=== PATIENT | male | born 1950 | race Caucasian/White ===

== ENCOUNTER → 2016-12-15 | Outpatient (CLI) | payer MEDICARE, OTHER ==
[~2016-12-15] MED LIST: B COMPLEX & B121 TAB PO; CALCIUM CARB W/1 TAB PO; CARDI-OMEGA1000 MG PO; CEPHALEXIN500 M2 PO; CHILDREN'S ASPI81 M1 PO; CO Q-1050 MG PO; DUO-KAPS1 CAP PO; FLOMAX 0.40.4 MG/CAP PO; GLUCOPHAGE PO; GUAIFENESIN AC120 ML PO; LIPITOR 80MG80 MG PO; MYFORTIC360 MG PO; NATURE'S BLEND400 I1 PO; PERCOCET 325 MG1 TA2 PO; PROGRAF 0.5MG0.5 MG PO; PROGRAF1 MG PO; RESTORIL30 MG PO; TANZEUM50 MG SC; VITAMIN B12 PO; ZYRTEC10 MG PO
== END ==
LOC: LAB 08:16
DX: Z94.1 Heart transplant status (principal); D89.9 Disorder involving the immune mechanism, unspecified

== ENCOUNTER → 2017-01-03 | Day surgery (SDC) | payer MEDICARE, OTHER | LOC: MSO 07:04 | DX: Z12.9 Encounter for screening for malignant neoplasm, site unspecified (principal); Z94.1 Heart transplant status; Z87.891 Personal history of nicotine dependence | CPT/HCPCS: 00810; G0121; J7030 ==

== ENCOUNTER → 2017-03-15 | Outpatient (CLI) | payer MEDICARE, OTHER ==
[2016-09-06 03:33] VITALS: BP 147/84
== END ==
LOC: LAB 07:20
DX: Z94.1 Heart transplant status (principal); E78.5 Hyperlipidemia, unspecified; D89.9 Disorder involving the immune mechanism, unspecified

== ENCOUNTER → 2017-03-31 | Outpatient (CLI) | payer MEDICARE, OTHER ==
[2016-09-06 03:33] VITALS: BP 147/84
== END ==
LOC: LAB 09:49
DX: Z94.1 Heart transplant status (principal)

== ENCOUNTER → 2017-04-18 | Outpatient (CLI) | payer MEDICARE, OTHER ==
[2016-09-06 03:33] VITALS: BP 147/84
== END ==
LOC: LAB 08:45
DX: Z94.1 Heart transplant status (principal)

== ENCOUNTER → 2018-03-06 | Outpatient (CLI) | payer MEDICARE, OTHER ==
[2016-09-06 03:33] VITALS: BP 147/84
[2018-03-06 07:24] LABS: EOS # 0.1 (0.04-0.40); EOS % 3.2 % (0.0-4.0); HEMATOCRIT 46.9 % (42.0-52.0); HEMOGLOBIN 15.4 g/dL (13.5-18.0); LYMPH# 1.2 (1.50-4.00); MEAN CELL VOLUME 90 fl (78-100); MEAN CORPUSCULAR HEMOGLOBIN 30 pg (27-31); MEAN CORPUSCULAR HGB CONC 33 g/dL (33-37); MEAN PLATELET VOLUME 10.1 fl (7.4-10.4); MONO # 0.3 (0.20-0.80); NEU # 2.7 (1.40-6.50); PLATELET COUNT 139 K/mm3 (130-400); RED BLOOD COUNT 5.19 M/mm3 (4.20-5.60); WHITE BLOOD COUNT 4.4 K/mm3 (4.8-10.8)
[2018-03-06 07:37] LABS: BUN/CREATININE RATIO 20.1 (6.0-26.0); POTASSIUM 4.4 mmol/L (3.6-5.0)
== END ==
LOC: LAB 07:11
PROVIDERS: Internal Medicine Cardiovascular Disease
DX: Z48.21 Encounter for aftercare following heart transplant (principal); D89.9 Disorder involving the immune mechanism, unspecified; E78.2 Mixed hyperlipidemia

== ENCOUNTER → 2018-09-06 | Outpatient (CLI) | payer MEDICARE, OTHER ==
[2016-09-06 03:33] VITALS: BP 147/84
[2018-09-06 09:04] LABS: EOS # 0.2 (0.04-0.40); EOS % 2.6 % (0.0-4.0); HEMATOCRIT 47.2 % (42.0-52.0); HEMOGLOBIN 15.4 g/dL (13.5-18.0); LYMPH# 1.4 (1.50-4.00); MEAN CELL VOLUME 89 fl (78-100); MEAN CORPUSCULAR HEMOGLOBIN 29 pg (27-31); MEAN CORPUSCULAR HGB CONC 33 g/dL (33-37); MEAN PLATELET VOLUME 9.8 fl (7.4-10.4); MONO # 0.5 (0.20-0.80); NEU # 3.7 (1.40-6.50); PLATELET COUNT 153 K/mm3 (130-400); RED BLOOD COUNT 5.29 M/mm3 (4.20-5.60); RED CELL DISTRIBUTION WIDTH 14.1 % (11.5-14.5); WHITE BLOOD COUNT 5.7 K/mm3 (4.8-10.8)
[2018-09-06 09:17] LABS: CALCIUM 9.3 mg/dL (8.4-10.2); POTASSIUM 4.5 mmol/L (3.6-5.0)
== END ==
LOC: LAB 08:47
PROVIDERS: Internal Medicine Cardiovascular Disease
DX: Z48.21 Encounter for aftercare following heart transplant (principal); Z94.1 Heart transplant status; E78.2 Mixed hyperlipidemia; D89.9 Disorder involving the immune mechanism, unspecified; Z79.899 Other long term (current) drug therapy; Z92.241 Personal history of systemic steroid therapy

== ENCOUNTER → 2018-10-31 | Outpatient (CLI) | payer MEDICARE, OTHER ==
[2016-09-06 03:33] VITALS: BP 147/84
== END ==
LOC: LAB 10:16
PROVIDERS: Physician Assistant
DX: Z12.5 Encounter for screening for malignant neoplasm of prostate (principal); I21.9 Acute myocardial infarction, unspecified; E78.5 Hyperlipidemia, unspecified; E11.9 Type 2 diabetes mellitus without complications; K31.84 Gastroparesis; M15.9 Polyosteoarthritis, unspecified; Z94.9 Transplanted organ and tissue status, unspecified

== ENCOUNTER → 2018-12-12 | Outpatient (CLI) | payer MEDICARE, OTHER ==
[2016-09-06 03:33] VITALS: BP 147/84
[2018-12-12 09:11] LABS: EOS # 0.2 (0.04-0.40); HEMATOCRIT 47.2 % (42.0-52.0); HEMOGLOBIN 15.4 g/dL (13.5-18.0); LYMPH# 1.3 (1.50-4.00); MEAN CELL VOLUME 89 fl (78-100); MEAN CORPUSCULAR HEMOGLOBIN 29 pg (27-31); MEAN CORPUSCULAR HGB CONC 33 g/dL (33-37); MEAN PLATELET VOLUME 10.2 fl (7.4-10.4); MONO # 0.5 (0.20-0.80); NEU # 3.3 (1.40-6.50); PLATELET COUNT 138 K/mm3 (130-400); RED BLOOD COUNT 5.32 M/mm3 (4.20-5.60); RED CELL DISTRIBUTION WIDTH 14.2 % (11.5-14.5); WHITE BLOOD COUNT 5.3 K/mm3 (4.8-10.8)
[2018-12-12 09:20] LABS: CALCIUM 8.9 mg/dL (8.4-10.2); POTASSIUM 4.1 mmol/L (3.6-5.0)
[2018-12-13 14:31] LABS: TACROLIMUS (PROGRAF) 6.7 ng/mL (5.0-15.0)
== END ==
LOC: LAB 08:39
PROVIDERS: Internal Medicine Cardiovascular Disease
DX: Z12.5 Encounter for screening for malignant neoplasm of prostate (principal); Z13.1 Encounter for screening for diabetes mellitus; Z48.21 Encounter for aftercare following heart transplant; B25.9 Cytomegaloviral disease, unspecified; E78.2 Mixed hyperlipidemia; D89.9 Disorder involving the immune mechanism, unspecified; E55.9 Vitamin D deficiency, unspecified; Z79.899 Other long term (current) drug therapy; Z92.241 Personal history of systemic steroid therapy; Z94.1 Heart transplant status

== ENCOUNTER → 2019-03-08 | Outpatient (CLI) | payer MEDICARE, OTHER ==
[2016-09-06 03:33] VITALS: BP 147/84
[2019-03-08 09:00] LABS: EOS # 0.1 (0.04-0.40); EOS % 2.5 % (0.0-4.0); HEMATOCRIT 48.3 % (42.0-52.0); HEMOGLOBIN 15.4 g/dL (13.5-18.0); LYMPH# 1.4 (1.50-4.00); MEAN CELL VOLUME 90 fl (78-100); MEAN CORPUSCULAR HEMOGLOBIN 29 pg (27-31); MEAN CORPUSCULAR HGB CONC 32 g/dL (33-37); MEAN PLATELET VOLUME 9.8 fl (7.4-10.4); MONO # 0.5 (0.20-0.80); NEU # 2.9 (1.40-6.50); PLATELET COUNT 154 K/mm3 (130-400); RED BLOOD COUNT 5.37 M/mm3 (4.20-5.60); RED CELL DISTRIBUTION WIDTH 14.5 % (11.5-14.5); WHITE BLOOD COUNT 4.9 K/mm3 (4.8-10.8)
[2019-03-08 09:21] LABS: ALBUMIN 4.3 g/dL (3.4-4.8); CALCIUM 9.3 mg/dL (8.3-10.5); POTASSIUM 4.7 mmol/L (3.5-5.1); TOTAL PROTEIN 6.7 g/dL (6.2-8.1)
[2019-03-09 09:43] LABS: TACROLIMUS (PROGRAF) 6.6 ng/mL (5.0-15.0)
== END ==
LOC: LAB 08:50
DX: Z48.21 Encounter for aftercare following heart transplant (principal); D89.9 Disorder involving the immune mechanism, unspecified; Z20.828 Contact with and (suspected) exposure to other viral communicable diseases; Z79.899 Other long term (current) drug therapy; Z94.1 Heart transplant status; Z92.241 Personal history of systemic steroid therapy

== ENCOUNTER → 2019-05-18 | Outpatient (CLI) | payer MEDICARE, OTHER ==
[2016-09-06 03:33] VITALS: BP 147/84
== END ==
LOC: LAB 08:45
DX: Z48.21 Encounter for aftercare following heart transplant (principal)

== ENCOUNTER → 2019-07-11 | Outpatient (CLI) | payer MEDICARE, OTHER ==
[2016-09-06 03:33] VITALS: BP 147/84
== END ==
LOC: LAB 08:50
PROVIDERS: Internal Medicine Cardiovascular Disease
DX: Z48.21 Encounter for aftercare following heart transplant (principal)

== ENCOUNTER → 2019-07-27 | Outpatient (CLI) | payer MEDICARE, OTHER ==
[2016-09-06 03:33] VITALS: BP 147/84
== END ==
LOC: LAB 08:52
PROVIDERS: Internal Medicine Cardiovascular Disease
DX: Z48.21 Encounter for aftercare following heart transplant (principal)

== ENCOUNTER → 2019-09-03 | Outpatient (CLI) | payer MEDICARE, OTHER ==
[2016-09-06 03:33] VITALS: BP 147/84
[2019-09-03 09:13] LABS: EOS # 0.1 (0.04-0.40); EOS % 2.6 % (0.0-4.0); HEMATOCRIT 49.9 % (42.0-52.0); HEMOGLOBIN 16.2 g/dL (13.5-18.0); LYMPH# 1.6 (1.50-4.00); MEAN CELL VOLUME 90 fl (78-100); MEAN CORPUSCULAR HEMOGLOBIN 29 pg (27-31); MEAN CORPUSCULAR HGB CONC 33 g/dL (33-37); MONO # 0.5 (0.20-0.80); NEU # 2.9 (1.40-6.50); PLATELET COUNT 158 K/mm3 (130-400); RED BLOOD COUNT 5.52 M/mm3 (4.20-5.60); RED CELL DISTRIBUTION WIDTH 14.1 % (11.5-14.5); WHITE BLOOD COUNT 5.1 K/mm3 (4.8-10.8)
[2019-09-03 09:18] LABS: ALBUMIN 4.7 g/dL (3.4-4.8)
[2019-09-03 09:19] LABS: POTASSIUM 4.3 mmol/L (3.5-5.1)
[2019-09-03 09:20] LABS: CALCIUM 9.7 mg/dL (8.3-10.5)
[2019-09-03 09:21] LABS: TOTAL PROTEIN 7.3 g/dL (6.2-8.1)
[2019-09-03 09:23] LABS: TOTAL BILIRUBIN 0.9 mg/dL (0.2-1.2)
[2019-09-05 14:49] LABS: MAGNESIUM 1.63 mg/dL (1.60-2.60)
[2019-09-06 13:26] LABS: CYTOMEGALOVIRUS DNA PCR Detected <50 IU/mL (()); CYTOMEGALOVIRUS DNA PCR LOG Detected <1.70 (())
== END ==
LOC: LAB 08:53
PROVIDERS: Internal Medicine Cardiovascular Disease
DX: Z48.21 Encounter for aftercare following heart transplant (principal); R89.4 Abnormal immunological findings in specimens from other organs, systems and tissues; D89.9 Disorder involving the immune mechanism, unspecified; Z79.899 Other long term (current) drug therapy

== ENCOUNTER → 2019-09-11 | Outpatient (CLI) | payer MEDICARE, OTHER ==
[2016-09-06 03:33] VITALS: BP 147/84
== END ==
LOC: LAB 08:57
DX: Z48.21 Encounter for aftercare following heart transplant (principal); D89.9 Disorder involving the immune mechanism, unspecified; R89.4 Abnormal immunological findings in specimens from other organs, systems and tissues; Z79.899 Other long term (current) drug therapy

== ENCOUNTER → 2020-03-04 | Outpatient (CLI) | payer MEDICARE, OTHER ==
[2016-09-06 03:33] VITALS: BP 147/84
[2020-03-04 09:13] LABS: EOS # 0.2 (0.04-0.40); HEMOGLOBIN 15.6 g/dL (13.5-18.0); LYMPH# 1.4 (1.50-4.00); MEAN CELL VOLUME 92 fl (78-100); MEAN CORPUSCULAR HEMOGLOBIN 31 pg (27-31); MEAN CORPUSCULAR HGB CONC 33 g/dL (33-37); MEAN PLATELET VOLUME 9.6 fl (7.4-10.4); MONO # 0.5 (0.20-0.80); PLATELET COUNT 154 K/mm3 (130-400); RED BLOOD COUNT 5.09 M/mm3 (4.20-5.60); RED CELL DISTRIBUTION WIDTH 14.8 % (11.5-14.5)
[2020-03-04 09:33] LABS: ALBUMIN 4.4 g/dL (3.4-4.8); POTASSIUM 4.2 mmol/L (3.5-5.1)
[2020-03-04 09:34] LABS: CALCIUM 8.6 mg/dL (8.3-10.5)
[2020-03-04 09:37] LABS: TOTAL BILIRUBIN 0.7 mg/dL (0.2-1.2)
[2020-03-04 09:42] LABS: MAGNESIUM 1.84 mg/dL (1.60-2.60)
[2020-03-04 23:29] LABS: TACROLIMUS (PROGRAF) 6.6 ng/mL (5.0-15.0)
== END ==
LOC: LAB 09:01
DX: Z48.21 Encounter for aftercare following heart transplant (principal); D89.9 Disorder involving the immune mechanism, unspecified; N18.3 Chronic kidney disease, stage 3 (moderate); R89.4 Abnormal immunological findings in specimens from other organs, systems and tissues; Z79.899 Other long term (current) drug therapy

== ENCOUNTER → 2020-09-05 | Outpatient (CLI) | payer MEDICARE, OTHER ==
[2016-09-06 03:33] VITALS: BP 147/84
[2020-09-05 09:13] LABS: EOS # 0.3 (0.04-0.40); EOS % 4.5 % (0.0-4.0); HEMATOCRIT 47.6 % (42.0-52.0); HEMOGLOBIN 15.5 g/dL (13.5-18.0); LYMPH# 1.5 (1.50-4.00); MEAN CELL VOLUME 94 fl (78-100); MEAN CORPUSCULAR HEMOGLOBIN 31 pg (27-31); MEAN CORPUSCULAR HGB CONC 33 g/dL (33-37); MEAN PLATELET VOLUME 9.7 fl (7.4-10.4); MONO # 0.5 (0.20-0.80); NEU # 3.8 (1.40-6.50); PLATELET COUNT 144 K/mm3 (130-400); RED BLOOD COUNT 5.06 M/mm3 (4.20-5.60); RED CELL DISTRIBUTION WIDTH 13.8 % (11.5-14.5)
[2020-09-05 09:24] LABS: ALBUMIN 4.2 g/dL (3.4-4.8); POTASSIUM 4.2 mmol/L (3.5-5.1)
[2020-09-05 09:27] LABS: TOTAL PROTEIN 6.8 g/dL (6.2-8.1)
[2020-09-05 09:29] LABS: TOTAL BILIRUBIN 1.4 mg/dL (0.2-1.2)
[2020-09-05 09:33] LABS: MAGNESIUM 1.73 mg/dL (1.60-2.60)
[2020-09-07 17:11] LABS: TACROLIMUS (PROGRAF) 6.4 ng/mL (5.0-15.0)
[2020-09-09 14:17] LABS: CYTOMEGALOVIRUS DNA PCR Not Detected (()); CYTOMEGALOVIRUS DNA PCR LOG Not Detected (())
== END ==
LOC: LAB 08:58
DX: Z48.21 Encounter for aftercare following heart transplant (principal); N18.30 Chronic kidney disease, stage 3 unspecified; D84.9 Immunodeficiency, unspecified; Z79.899 Other long term (current) drug therapy

== ENCOUNTER → 2020-11-14 | Outpatient (CLI) | payer MEDICARE, OTHER ==
[2016-09-06 03:33] VITALS: BP 147/84
[2020-11-14 09:22] LABS: EOS # 0.3 (0.04-0.40); HEMATOCRIT 47.5 % (42.0-52.0); HEMOGLOBIN 15.9 g/dL (13.5-18.0); LYMPH# 1.5 (1.50-4.00); MEAN CELL VOLUME 92 fl (78-100); MEAN CORPUSCULAR HEMOGLOBIN 31 pg (27-31); MEAN CORPUSCULAR HGB CONC 34 g/dL (33-37); MEAN PLATELET VOLUME 9.8 fl (7.4-10.4); MONO # 0.4 (0.20-0.80); NEU # 2.9 (1.40-6.50); PLATELET COUNT 150 K/mm3 (130-400); RED BLOOD COUNT 5.15 M/mm3 (4.20-5.60); RED CELL DISTRIBUTION WIDTH 13.6 % (11.5-14.5); WHITE BLOOD COUNT 5.1 K/mm3 (4.8-10.8)
[2020-11-14 09:40] LABS: POTASSIUM 4.2 mmol/L (3.5-5.1)
[2020-11-14 09:41] LABS: ALBUMIN 4.3 g/dL (3.4-4.8)
[2020-11-14 09:43] LABS: TOTAL PROTEIN 6.9 g/dL (6.2-8.1)
[2020-11-14 09:45] LABS: TOTAL BILIRUBIN 1.5 mg/dL (0.2-1.2)
[2020-11-14 09:50] LABS: MAGNESIUM 1.74 mg/dL (1.60-2.60)
[2020-11-14 10:05] LABS: EOS % 5.3 % (0.0-4.0)
== END ==
LOC: LAB 09:01
DX: Z48.21 Encounter for aftercare following heart transplant (principal); Z13.29 Encounter for screening for other suspected endocrine disorder; E11.9 Type 2 diabetes mellitus without complications; Z79.899 Other long term (current) drug therapy; R89.4 Abnormal immunological findings in specimens from other organs, systems and tissues

== ENCOUNTER → 2020-12-19 | Outpatient (CLI) | payer MEDICARE, OTHER ==
[2016-09-06 03:33] VITALS: BP 147/84
[2020-12-21 15:58] LABS: TACROLIMUS (PROGRAF) 9.2 ng/mL (5.0-15.0)
== END ==
LOC: LAB 08:46
DX: Z48.21 Encounter for aftercare following heart transplant (principal); Z12.5 Encounter for screening for malignant neoplasm of prostate; Z13.21 Encounter for screening for nutritional disorder; Z13.820 Encounter for screening for osteoporosis

== ENCOUNTER → 2021-01-19 | Outpatient (CLI) | payer MEDICARE, OTHER ==
[2016-09-06 03:33] VITALS: BP 147/84
== END ==
LOC: LAB 08:54
PROVIDERS: Internal Medicine Advanced Heart Failure and Transplant Cardiology
DX: Z48.21 Encounter for aftercare following heart transplant (principal)

== ENCOUNTER → 2021-03-20 | Outpatient (CLI) | payer MEDICARE, OTHER ==
[2021-03-20 09:10] LABS: BASO # 0.04 (0.02-0.10); EOS # 0.21 (0.04-0.40); EOS % 3.7 % (0.0-4.0); HEMATOCRIT 48.5 % (42.0-52.0); HEMOGLOBIN 16.5 g/dL (13.5-18.0); LYMPH# 1.91 (1.50-4.00); MEAN CELL VOLUME 90 fl (78-100); MEAN CORPUSCULAR HEMOGLOBIN 31 pg (27-31); MEAN CORPUSCULAR HGB CONC 34 g/dL (33-37); MEAN PLATELET VOLUME 10.1 fl (7.4-10.4); MONO # 0.49 (0.20-0.80); NEU # 3.04 (1.40-6.50); PLATELET COUNT 143 K/mm3 (130-400); RED BLOOD COUNT 5.37 M/mm3 (4.20-5.60); WHITE BLOOD COUNT 5.7 K/mm3 (4.8-10.8)
[2021-03-20 09:14] LABS: ALBUMIN 4.6 g/dL (3.4-4.8); POTASSIUM 4.5 mmol/L (3.5-5.1)
[2021-03-20 09:15] LABS: CALCIUM 9.1 mg/dL (8.3-10.5)
[2021-03-20 09:16] LABS: TOTAL PROTEIN 7.4 g/dL (6.2-8.1)
[2021-03-20 09:23] LABS: MAGNESIUM 1.82 mg/dL (1.60-2.60)
[2021-03-24 14:14] LABS: CYTOMEGALOVIRUS DNA PCR Not Detected (()); CYTOMEGALOVIRUS DNA PCR LOG Not Detected (())
[2021-03-25 13:34] LABS: TACROLIMUS (PROGRAF) 7.2 ng/mL (5.0-15.0)
== END ==
LOC: LAB 08:46
DX: Z48.21 Encounter for aftercare following heart transplant (principal); N18.30 Chronic kidney disease, stage 3 unspecified; D84.9 Immunodeficiency, unspecified; R89.4 Abnormal immunological findings in specimens from other organs, systems and tissues; Z79.899 Other long term (current) drug therapy

== ENCOUNTER → 2021-04-23 | Outpatient (CLI) | payer MEDICARE, OTHER ==
[2021-04-23 13:44] LABS: POTASSIUM 4.8 mmol/L (3.5-5.1)
[2021-04-23 13:46] LABS: CALCIUM 9.3 mg/dL (8.3-10.5)
== END ==
LOC: LAB 08:49
PROVIDERS: Internal Medicine Cardiovascular Disease
DX: Z48.21 Encounter for aftercare following heart transplant (principal)

== ENCOUNTER → 2021-05-28 | Outpatient (CLI) | payer MEDICARE, OTHER ==
[2021-05-28 09:18] LABS: BASO # 0.02 (0.02-0.10); EOS # 0.24 (0.04-0.40); EOS % 3.8 % (0.0-4.0); HEMOGLOBIN 16.2 g/dL (13.5-18.0); LYMPH# 1.63 (1.50-4.00); MEAN CELL VOLUME 95 fl (78-100); MEAN CORPUSCULAR HEMOGLOBIN 31 pg (27-31); MEAN CORPUSCULAR HGB CONC 33 g/dL (33-37); MEAN PLATELET VOLUME 9.8 fl (7.4-10.4); PLATELET COUNT 131 K/mm3 (130-400); RED BLOOD COUNT 5.18 M/mm3 (4.20-5.60); WHITE BLOOD COUNT 6.3 K/mm3 (4.8-10.8)
[2021-05-28 09:26] LABS: ALBUMIN 4.4 g/dL (3.4-4.8); POTASSIUM 4.5 mmol/L (3.5-5.1)
[2021-05-28 09:27] LABS: CALCIUM 9.8 mg/dL (8.3-10.5)
[2021-05-28 09:29] LABS: TOTAL PROTEIN 7.3 g/dL (6.2-8.1)
[2021-05-28 09:31] LABS: TOTAL BILIRUBIN 0.9 mg/dL (0.2-1.2)
[2021-05-28 09:35] LABS: MAGNESIUM 1.76 mg/dL (1.60-2.60)
[2021-05-29 01:15] LABS: TACROLIMUS (PROGRAF) 9.3 ng/mL (5.0-15.0)
[2021-06-05 17:55] LABS: CYTOMEGALOVIRUS DNA PCR Not Detected (()); CYTOMEGALOVIRUS DNA PCR LOG Not Detected (())
== END ==
LOC: LAB 08:56
PROVIDERS: Internal Medicine Cardiovascular Disease
DX: Z48.21 Encounter for aftercare following heart transplant (principal)

== ENCOUNTER → 2021-09-08 | Outpatient (CLI) | payer MEDICARE, OTHER ==
[2021-09-08 09:13] LABS: BASO # 0.02 K/mm3 (0.02-0.10); EOS # 0.29 K/mm3 (0.04-0.40); EOS % 5.3 % (0.0-4.0); HEMATOCRIT 50.3 % (42.0-52.0); HEMOGLOBIN 16.5 g/dL (13.5-18.0); LYMPH# 1.89 K/mm3 (1.50-4.00); MEAN CELL VOLUME 94 fl (78-100); MEAN CORPUSCULAR HEMOGLOBIN 31 pg (27-31); MEAN CORPUSCULAR HGB CONC 33 g/dL (33-37); MEAN PLATELET VOLUME 10.1 fl (7.4-10.4); MONO # 0.38 K/mm3 (0.20-0.80); NEU # 2.92 K/mm3 (1.40-6.50); PLATELET COUNT 132 K/mm3 (130-400); RED BLOOD COUNT 5.34 M/mm3 (4.20-5.60); RED CELL DISTRIBUTION WIDTH 12.7 % (11.5-14.5); WHITE BLOOD COUNT 5.5 K/mm3 (4.8-10.8)
[2021-09-08 09:35] LABS: POTASSIUM 4.5 mmol/L (3.5-5.1)
[2021-09-08 09:36] LABS: ALBUMIN 4.4 g/dL (3.4-4.8)
[2021-09-08 09:37] LABS: CALCIUM 8.9 mg/dL (8.3-10.5)
[2021-09-08 09:40] LABS: TOTAL BILIRUBIN 1.4 mg/dL (0.2-1.2)
[2021-09-08 09:45] LABS: MAGNESIUM 1.82 mg/dL (1.60-2.60)
[2021-09-11 17:34] LABS: CYTOMEGALOVIRUS DNA PCR Not Detected (()); CYTOMEGALOVIRUS DNA PCR LOG Not Detected (())
== END ==
LOC: LAB 08:56
PROVIDERS: Internal Medicine Cardiovascular Disease
DX: Z48.21 Encounter for aftercare following heart transplant (principal); N18.30 Chronic kidney disease, stage 3 unspecified; E78.2 Mixed hyperlipidemia; D84.9 Immunodeficiency, unspecified; Z79.899 Other long term (current) drug therapy

== ENCOUNTER → 2021-10-07 | Outpatient (CLI) | payer MEDICARE, OTHER | LOC: LAB 13:44 | DX: Z48.21 Encounter for aftercare following heart transplant (principal); N18.30 Chronic kidney disease, stage 3 unspecified; E78.2 Mixed hyperlipidemia; D84.9 Immunodeficiency, unspecified; Z79.899 Other long term (current) drug therapy ==

== ENCOUNTER → 2022-02-22 | Day surgery (SDC) | payer MEDICARE, OTHER | END | disposition home or self-care (01) | LOC: MSO 09:13 | DX: Z12.11 Encounter for screening for malignant neoplasm of colon (principal); K57.30 Diverticulosis of large intestine without perforation or abscess without bleeding; I25.2 Old myocardial infarction; Z94.1 Heart transplant status; Z79.899 Other long term (current) drug therapy; Z95.1 Presence of aortocoronary bypass graft; Z87.891 Personal history of nicotine dependence | CPT/HCPCS: G0121; 00812; J2704; J7120 ==

== ENCOUNTER → 2022-03-22 | Outpatient (CLI) | payer MEDICARE, OTHER ==
[2022-03-22 09:04] LABS: BASO # 0.03 K/mm3 (0.02-0.10); EOS # 0.44 K/mm3 (0.04-0.40); EOS % 8.1 % (0.0-4.0); HEMATOCRIT 50.4 % (42.0-52.0); HEMOGLOBIN 16.8 g/dL (13.5-18.0); LYMPH# 1.77 K/mm3 (1.50-4.00); MEAN CELL VOLUME 93 fl (78-100); MEAN CORPUSCULAR HEMOGLOBIN 31 pg (27-31); MEAN CORPUSCULAR HGB CONC 33 g/dL (33-37); MEAN PLATELET VOLUME 9.5 fl (7.4-10.4); MONO # 0.39 K/mm3 (0.20-0.80); NEU # 2.81 K/mm3 (1.40-6.50); PLATELET COUNT 139 K/mm3 (130-400); RED BLOOD COUNT 5.41 M/mm3 (4.20-5.60); RED CELL DISTRIBUTION WIDTH 12.9 % (11.5-14.5); WHITE BLOOD COUNT 5.5 K/mm3 (4.8-10.8)
[2022-03-22 09:28] LABS: ALBUMIN 4.4 g/dL (3.4-4.8); POTASSIUM 4.6 mmol/L (3.5-5.1)
[2022-03-22 09:30] LABS: CALCIUM 9.2 mg/dL (8.3-10.5)
[2022-03-22 09:31] LABS: TOTAL PROTEIN 7.4 g/dL (6.2-8.1)
[2022-03-22 09:37] LABS: MAGNESIUM 1.92 mg/dL (1.60-2.60)
[2022-03-23 13:58] LABS: TACROLIMUS (PROGRAF) 5.6 ng/mL (5.0-15.0)
[2022-03-26 14:22] LABS: CYTOMEGALOVIRUS DNA PCR Not Detected (()); CYTOMEGALOVIRUS DNA PCR LOG Not Detected (())
== END ==
LOC: LAB 08:45
PROVIDERS: Internal Medicine
DX: Z48.21 Encounter for aftercare following heart transplant (principal); N18.30 Chronic kidney disease, stage 3 unspecified; D84.9 Immunodeficiency, unspecified; R76.8 Other specified abnormal immunological findings in serum; Z79.899 Other long term (current) drug therapy

== ENCOUNTER → 2022-06-09 | Outpatient (CLI) | payer MEDICARE, OTHER ==
[2022-06-09 09:35] LABS: BASO # 0.03 K/mm3 (0.02-0.10); EOS # 0.27 K/mm3 (0.04-0.40); EOS % 5.5 % (0.0-4.0); HEMATOCRIT 47.4 % (42.0-52.0); LYMPH# 1.65 K/mm3 (1.50-4.00); MEAN CELL VOLUME 94 fl (78-100); MEAN CORPUSCULAR HEMOGLOBIN 32 pg (27-31); MEAN CORPUSCULAR HGB CONC 34 g/dL (33-37); MEAN PLATELET VOLUME 9.5 fl (7.4-10.4); MONO # 0.39 K/mm3 (0.20-0.80); NEU # 2.54 K/mm3 (1.40-6.50); PLATELET COUNT 127 K/mm3 (130-400); RED BLOOD COUNT 5.03 M/mm3 (4.20-5.60); RED CELL DISTRIBUTION WIDTH 13.5 % (11.5-14.5); WHITE BLOOD COUNT 4.9 K/mm3 (4.8-10.8)
[2022-06-09 09:40] LABS: ALBUMIN 4.3 g/dL (3.4-4.8); POTASSIUM 4.5 mmol/L (3.5-5.1)
[2022-06-09 09:41] LABS: CALCIUM 8.5 mg/dL (8.3-10.5)
[2022-06-09 09:44] LABS: TOTAL BILIRUBIN 1.1 mg/dL (0.2-1.2)
[2022-06-10 15:23] LABS: TACROLIMUS (PROGRAF) 5.5 ng/mL (5.0-15.0)
[2022-06-15 13:45] LABS: CYTOMEGALOVIRUS DNA PCR Not Detected (()); CYTOMEGALOVIRUS DNA PCR LOG Not Detected (())
== END ==
LOC: LAB 09:06
DX: Z48.21 Encounter for aftercare following heart transplant (principal); Z79.899 Other long term (current) drug therapy

== ENCOUNTER → 2022-09-07 | Outpatient (CLI) | payer MEDICARE, OTHER ==
[2022-09-07 11:51] LABS: BASO # 0.03 K/mm3 (0.02-0.10); EOS # 0.34 K/mm3 (0.04-0.40); EOS % 3.5 % (0.0-4.0); HEMATOCRIT 51.1 % (42.0-52.0); HEMOGLOBIN 17.1 g/dL (13.5-18.0); LYMPH# 2.03 K/mm3 (1.50-4.00); MEAN CELL VOLUME 96 fl (78-100); MEAN CORPUSCULAR HEMOGLOBIN 32 pg (27-31); MEAN CORPUSCULAR HGB CONC 34 g/dL (33-37); MEAN PLATELET VOLUME 9.7 fl (7.4-10.4); MONO # 0.51 K/mm3 (0.20-0.80); PLATELET COUNT 152 K/mm3 (130-400); RED CELL DISTRIBUTION WIDTH 13.4 % (11.5-14.5); WHITE BLOOD COUNT 9.8 K/mm3 (4.8-10.8)
[2022-09-07 11:57] LABS: POTASSIUM 4.5 mmol/L (3.5-5.1); SODIUM 140 mmol/L (136-145)
[2022-09-07 11:58] LABS: CALCIUM 9.6 mg/dL (8.3-10.5)
[2022-09-07 11:59] LABS: GLUCOSE 165 mg/dL (75-110)
[2022-09-07 12:00] LABS: CARBON DIOXIDE 22 mmol/L (23-31)
== END ==
LOC: LAB 11:35
PROVIDERS: Nurse Practitioner Family
DX: M25.572 Pain in left ankle and joints of left foot (principal); M79.672 Pain in left foot

== ENCOUNTER → 2022-09-14 | Outpatient (CLI) | payer MEDICARE, OTHER ==
[2022-09-14 08:56] LABS: BASO # 0.02 K/mm3 (0.02-0.10); EOS # 0.41 K/mm3 (0.04-0.40); EOS % 6.6 % (0.0-4.0); HEMATOCRIT 49.2 % (42.0-52.0); HEMOGLOBIN 16.5 g/dL (13.5-18.0); LYMPH# 1.96 K/mm3 (1.50-4.00); MEAN CELL VOLUME 95 fl (78-100); MEAN CORPUSCULAR HEMOGLOBIN 32 pg (27-31); MEAN CORPUSCULAR HGB CONC 34 g/dL (33-37); MEAN PLATELET VOLUME 9.7 fl (7.4-10.4); MONO # 0.48 K/mm3 (0.20-0.80); PLATELET COUNT 151 K/mm3 (130-400); RED BLOOD COUNT 5.16 M/mm3 (4.20-5.60); RED CELL DISTRIBUTION WIDTH 13.2 % (11.5-14.5); WHITE BLOOD COUNT 6.2 K/mm3 (4.8-10.8)
[2022-09-14 09:02] LABS: ALBUMIN 4.5 g/dL (3.4-4.8); POTASSIUM 4.5 mmol/L (3.5-5.1)
[2022-09-14 09:03] LABS: CALCIUM 9.3 mg/dL (8.3-10.5)
[2022-09-14 09:05] LABS: TOTAL PROTEIN 7.2 g/dL (6.2-8.1)
[2022-09-14 09:06] LABS: TOTAL BILIRUBIN 1.5 mg/dL (0.2-1.2)
[2022-09-14 09:11] LABS: MAGNESIUM 1.86 mg/dL (1.60-2.60)
[2022-09-15 13:18] LABS: TACROLIMUS (PROGRAF) 6.8 ng/mL (5.0-15.0)
== END ==
LOC: LAB 08:21
DX: Z48.21 Encounter for aftercare following heart transplant (principal); N18.30 Chronic kidney disease, stage 3 unspecified; D84.9 Immunodeficiency, unspecified; R76.8 Other specified abnormal immunological findings in serum; Z79.899 Other long term (current) drug therapy

== ENCOUNTER → 2022-11-03 | Outpatient (CLI) | payer MEDICARE, OTHER ==
[2022-11-03 09:37] LABS: ALBUMIN 4.4 g/dL (3.4-4.8)
[2022-11-03 09:38] LABS: POTASSIUM 4.4 mmol/L (3.5-5.1)
[2022-11-03 09:40] LABS: TOTAL PROTEIN 7.2 g/dL (6.2-8.1)
[2022-11-03 09:42] LABS: TOTAL BILIRUBIN 0.9 mg/dL (0.2-1.2)
== END ==
LOC: LAB 09:05
DX: Z00.00 Encounter for general adult medical examination without abnormal findings (principal); Z48.21 Encounter for aftercare following heart transplant; M81.0 Age-related osteoporosis without current pathological fracture; Z12.5 Encounter for screening for malignant neoplasm of prostate; E11.9 Type 2 diabetes mellitus without complications; Z13.29 Encounter for screening for other suspected endocrine disorder; G47.00 Insomnia, unspecified; E55.9 Vitamin D deficiency, unspecified; Z94.1 Heart transplant status; E78.5 Hyperlipidemia, unspecified

== ENCOUNTER 2023-11-14 10:23 | Outpatient (RCR) | payer MEDICARE, OTHER | END 2023-12-01 | disposition home or self-care (01) | LOC: OT | DX: M13.841 Other specified arthritis, right hand (principal) ==

== ENCOUNTER 2023-12-05 09:58 | Outpatient (RCR) | payer MEDICARE, OTHER | END 2023-12-19 08:25 | disposition home or self-care (01) | LOC: OT 09:58 | DX: M13.841 Other specified arthritis, right hand (principal) ==

== ENCOUNTER → 2023-12-14 | Outpatient (CLI) | payer MEDICARE, OTHER ==
[2023-12-14 09:15] LABS: BASO # 0.02 K/mm3 (0.02-0.10); EOS # 0.34 K/mm3 (0.04-0.40); EOS % 6.4 % (0.0-4.0); HEMATOCRIT 49.7 % (42.0-52.0); HEMOGLOBIN 16.3 g/dL (13.5-18.0); LYMPH# 1.82 K/mm3 (1.50-4.00); MEAN CELL VOLUME 96 fl (78-100); MEAN CORPUSCULAR HEMOGLOBIN 32 pg (27-31); MEAN CORPUSCULAR HGB CONC 33 g/dL (33-37); MEAN PLATELET VOLUME 10.1 fl (7.4-10.4); MONO # 0.41 K/mm3 (0.20-0.80); NEU # 2.71 K/mm3 (1.40-6.50); PLATELET COUNT 146 K/mm3 (130-400); RED BLOOD COUNT 5.18 M/mm3 (4.20-5.60); RED CELL DISTRIBUTION WIDTH 13.5 % (11.5-14.5); WHITE BLOOD COUNT 5.3 K/mm3 (4.8-10.8)
[2023-12-14 09:50] LABS: MAGNESIUM 1.79 mg/dL (1.60-2.60)
[2023-12-15 15:22] LABS: TACROLIMUS (PROGRAF) 6.1 ng/mL (5.0-15.0)
[2023-12-15 17:21] LABS: ALBUMIN 4.5 g/dL (3.4-4.8)
[2023-12-15 17:23] LABS: CALCIUM 9.5 mg/dL (8.3-10.5)
[2023-12-15 17:24] LABS: TOTAL PROTEIN 6.9 g/dL (6.2-8.1)
[2023-12-15 17:26] LABS: TOTAL BILIRUBIN 0.9 mg/dL (0.2-1.2)
== END ==
LOC: LAB 08:56
PROVIDERS: Physician Assistant
DX: Z12.5 Encounter for screening for malignant neoplasm of prostate (principal); Z13.21 Encounter for screening for nutritional disorder; Z48.21 Encounter for aftercare following heart transplant; N18.31 Chronic kidney disease, stage 3a; E78.2 Mixed hyperlipidemia; Z79.899 Other long term (current) drug therapy

== ENCOUNTER → 2024-04-04 | Outpatient (CLI) | payer MEDICARE, OTHER | LOC: RAD 10:57 | DX: R07.81 Pleurodynia (principal) ==

== ENCOUNTER → 2024-06-26 | Outpatient (CLI) | payer MEDICARE, OTHER ==
[2024-06-26 08:56] LABS: BASO # 0.01 K/mm3 (0.02-0.10); EOS # 0.41 K/mm3 (0.04-0.40); EOS % 7.2 % (0.0-4.0); HEMATOCRIT 48.6 % (42.0-52.0); HEMOGLOBIN 16.2 g/dL (13.5-18.0); LYMPH# 1.79 K/mm3 (1.50-4.00); MEAN CELL VOLUME 97 fl (78-100); MEAN CORPUSCULAR HEMOGLOBIN 32 pg (27-31); MEAN CORPUSCULAR HGB CONC 33 g/dL (33-37); MEAN PLATELET VOLUME 9.9 fl (7.4-10.4); PLATELET COUNT 144 K/mm3 (130-400); RED BLOOD COUNT 5.02 M/mm3 (4.20-5.60); RED CELL DISTRIBUTION WIDTH 13.8 % (11.5-14.5); WHITE BLOOD COUNT 5.7 K/mm3 (4.8-10.8)
[2024-06-26 09:07] LABS: ALBUMIN 4.6 g/dL (3.4-4.8)
[2024-06-26 09:09] LABS: TOTAL PROTEIN 7.3 g/dL (6.2-8.1)
[2024-06-26 09:11] LABS: TOTAL BILIRUBIN 1.1 mg/dL (0.2-1.2)
[2024-06-26 09:16] LABS: MAGNESIUM 1.85 mg/dL (1.60-2.60)
[2024-06-29 06:37] LABS: CYTOMEGALOVIRUS DNA PCR Negative (Negative)
[2024-07-02 13:07] LABS: TACROLIMUS (PROGRAF) 6.2
== END ==
LOC: LAB 08:45
PROVIDERS: Internal Medicine
DX: Z48.21 Encounter for aftercare following heart transplant (principal); Z79.899 Other long term (current) drug therapy

== ENCOUNTER → 2024-07-23 | Outpatient (CLI) | payer MEDICARE, OTHER ==
[2024-07-23 09:08] LABS: CALCIUM 9.1 mg/dL (8.3-10.5)
[2024-07-24 12:32] LABS: SIROLIMUS (RAPAMUNE) 3.5 ng/mL (3.0-18.0); TACROLIMUS (PROGRAF) 3.9 ng/mL (5.0-15.0)
== END ==
LOC: LAB 08:39
PROVIDERS: Internal Medicine
DX: Z48.21 Encounter for aftercare following heart transplant (principal)

== ENCOUNTER → 2024-09-10 | Outpatient (CLI) | payer MEDICARE, OTHER ==
[2024-09-10 09:04] LABS: BASO # 0.03 K/mm3 (0.02-0.10); EOS # 0.41 K/mm3 (0.04-0.40); EOS % 8.4 % (0.0-4.0); HEMATOCRIT 49.1 % (42.0-52.0); LYMPH# 1.59 K/mm3 (1.50-4.00); MEAN CELL VOLUME 95 fl (78-100); MEAN CORPUSCULAR HEMOGLOBIN 31 pg (27-31); MEAN CORPUSCULAR HGB CONC 33 g/dL (33-37); MEAN PLATELET VOLUME 10.1 fl (7.4-10.4); MONO # 0.36 K/mm3 (0.20-0.80); PLATELET COUNT 143 K/mm3 (130-400); RED BLOOD COUNT 5.19 M/mm3 (4.20-5.60); RED CELL DISTRIBUTION WIDTH 11.8 % (11.5-14.5); WHITE BLOOD COUNT 4.9 K/mm3 (4.8-10.8)
[2024-09-10 09:13] LABS: ALBUMIN 4.3 g/dL (3.4-4.8)
[2024-09-10 09:14] LABS: CALCIUM 9.8 mg/dL (8.3-10.5)
[2024-09-10 09:17] LABS: TOTAL BILIRUBIN 0.7 mg/dL (0.2-1.2)
[2024-09-10 09:22] LABS: MAGNESIUM 1.96 mg/dL (1.60-2.60)
[2024-09-11 14:05] LABS: SIROLIMUS (RAPAMUNE) 4.6 ng/mL (3.0-18.0)
[2024-09-13 05:37] LABS: CYTOMEGALOVIRUS DNA PCR Negative (Negative)
== END ==
LOC: LAB 08:48
PROVIDERS: Internal Medicine
DX: Z13.220 Encounter for screening for lipoid disorders (principal); D84.9 Immunodeficiency, unspecified; Z48.21 Encounter for aftercare following heart transplant; Z79.899 Other long term (current) drug therapy; Z20.828 Contact with and (suspected) exposure to other viral communicable diseases

== ENCOUNTER → 2024-09-25 | Outpatient (CLI) | payer MEDICARE, OTHER ==
[2024-09-25 09:20] LABS: CALCIUM 9.6 mg/dL (8.3-10.5)
[2024-09-27 15:53] LABS: TACROLIMUS (PROGRAF) 4.2 ng/mL (5.0-15.0)
[2024-09-28 14:08] LABS: SIROLIMUS (RAPAMUNE) 2.4 ng/mL (3.0-18.0)
== END ==
LOC: LAB 08:50
PROVIDERS: Internal Medicine Cardiovascular Disease
DX: Z48.21 Encounter for aftercare following heart transplant (principal)

== ENCOUNTER → 2024-10-17 | Outpatient (CLI) | payer MEDICARE, OTHER ==
[2024-10-18 17:07] LABS: TACROLIMUS (PROGRAF) 3.9 ng/mL (5.0-15.0)
== END ==
LOC: LAB 08:50
DX: Z48.21 Encounter for aftercare following heart transplant (principal); D84.9 Immunodeficiency, unspecified

== ENCOUNTER → 2024-12-24 | Outpatient (CLI) | payer MEDICARE, OTHER ==
[2024-12-24 09:02] LABS: BASO # 0.01 K/mm3 (0.02-0.10); EOS # 0.27 K/mm3 (0.04-0.40); EOS % 5.2 % (0.0-4.0); HEMATOCRIT 49.8 % (42.0-52.0); HEMOGLOBIN 16.2 g/dL (13.5-18.0); LYMPH# 1.61 K/mm3 (1.50-4.00); MEAN CELL VOLUME 95 fl (78-100); MEAN CORPUSCULAR HEMOGLOBIN 31 pg (27-31); MEAN CORPUSCULAR HGB CONC 33 g/dL (33-37); MEAN PLATELET VOLUME 10.5 fl (7.4-10.4); MONO # 0.43 K/mm3 (0.20-0.80); NEU # 2.88 K/mm3 (1.40-6.50); PLATELET COUNT 146 K/mm3 (130-400); RED BLOOD COUNT 5.22 M/mm3 (4.20-5.60); RED CELL DISTRIBUTION WIDTH 13.3 % (11.5-14.5); WHITE BLOOD COUNT 5.2 K/mm3 (4.8-10.8)
[2024-12-24 09:05] LABS: ALBUMIN 4.4 g/dL (3.4-4.8)
[2024-12-24 09:06] LABS: CALCIUM 9.4 mg/dL (8.3-10.5)
[2024-12-24 09:07] LABS: TOTAL PROTEIN 7.4 g/dL (6.2-8.1)
[2024-12-24 09:09] LABS: TOTAL BILIRUBIN 1.1 mg/dL (0.2-1.2)
[2024-12-24 09:14] LABS: MAGNESIUM 1.78 mg/dL (1.60-2.60)
[2024-12-25 17:08] LABS: TACROLIMUS (PROGRAF) 3.9 ng/mL (5.0-15.0)
== END ==
LOC: LAB 08:39 → EDSTATUS 08:56
PROVIDERS: Internal Medicine Cardiovascular Disease
DX: Z48.21 Encounter for aftercare following heart transplant (principal); Z12.5 Encounter for screening for malignant neoplasm of prostate; Z13.21 Encounter for screening for nutritional disorder; E11.22 Type 2 diabetes mellitus with diabetic chronic kidney disease; N18.31 Chronic kidney disease, stage 3a; E78.2 Mixed hyperlipidemia; Z79.899 Other long term (current) drug therapy; Z20.828 Contact with and (suspected) exposure to other viral communicable diseases